=== PATIENT | female | born 1970 ===

== ENCOUNTER 2017-12-18 13:42 | Emergency (ER) | payer SELFPAY ==
[2017-12-18 13:42] VITALS: BMI 26.4
[2017-12-18 13:55] VITALS: RESP 16; TEMP 98.4
[2017-12-18 15:03] VITALS: BP 132/82; PULSE 76; O2SAT 99
--- NOTE | 2017-12-18 15:12 | ED PDOC ---
Upper Extremity Pain/Injury Time Seen by Provider: 12/18/17 14:03 Chief Complaint (Nursing): Finger,Hand,&Wrist Chief Complaint (Provider): Finger,Hand,&Wrist History Per: Patient History/Exam Limitations: no limitations Onset/Duration Of Symptoms: Other (x2 months) Current Symptoms Are (Timing): Still Present Additional Complaint(s): 47 year old female presents to the ED for evaluation of constant mild painful swelling to her left wrist and right fourth digit for the last two months. Otherwise, denies trauma, fever, numbness, and tingling. PMD: none provided Past Medical History Reviewed: Historical Data, Nursing Documentation, Vital Signs Vital Signs: Last Vital Signs Temp 98.4 F 12/18/17 13:52 Pulse 76 12/18/17 15:02 Resp 16 12/18/17 15:02 BP 132/82 12/18/17 15:02 Pulse Ox 99 12/18/17 15:02 - Medical History PMH: HTN, Hypercholesterolemia, Hyperlipidemia Denies: Chronic Kidney Disease - Surgical History Surgical History: - Family History Family History: States: Unknown Family Hx - Social History Current smoker - smoking cessation education provided: No Alcohol: None Drugs: Denies - Home Medications Home Medications: Ambulatory Orders Medication Instructions Recorded Cyclobenzaprine [Cyclobenzaprine 10 mg PO BID #10 tab 03/29/17 HCl] RX: Ibuprofen [Motrin Tab] 600 mg PO Q6 #20 tab 03/29/17 - Allergies Allergies/Adverse Reactions: Allergies Allergy/AdvReac Type Severity Reaction Status Date / Time No Known Allergies Allergy Verified 12/18/17 13:52 Review of Systems ROS Statement: Except As Marked, All Systems Reviewed And Found Negative Constitutional: Negative for: Fever Musculoskeletal: Positive for: Other (mild painful constant swelling to left wrist and right fourth digit) Neurological: Negative for: Numbness (or tingling) Physical Exam - Reviewed Nursing Documentation Reviewed: Yes Vital Signs Reviewed: Yes - Physical Exam Appears: Positive for: No Acute Distress Head Exam: Positive for: ATRAUMATIC, NORMOCEPHALIC Skin: Positive for: Normal Color. Negative for: Rash Pulses-Radial (L): 2+ Pulses-Radial (R): 2+ Extremity: Positive for: Normal ROM (actively of affected joints), Capillary Refill (less than 2 seconds), Other (Non-erythematous, non-fluctuant non-tender mobile mass on dorsum of left wrist and on the lateral surface of the right fourth pip) - ECG O2 Sat by Pulse Oximetry: 99 (RA) Pulse Ox Interpretation: Normal Medical Decision Making Medical Decision Making: Time: 150 Initial Impression: ganglion cyst --Pt informed that in order to completely remove cyst, she will need to follow up with a hand surgeon. Pt to be d/c with information for [facility] and Dr. Gunter, hand surgeon. Scribe Attestation: Documented by Nicki Elizabeth, acting as a scribe for Parish Chapa PA-C. Provider Scribe Attestation: All medical record entries made by the Scribe were at my direction and personally dictated by me. I have reviewed the chart and agree that the record accurately reflects my personal performance of the history, physical exam, medical decision making, and the department course for this patient. I have also personally directed, reviewed, and agree with the discharge instructions and disposition. Disposition - Clinical Impression Clinical Impression: Ganglion cyst - Patient ED Disposition Is Patient to be Admitted: No - Disposition Referrals: [facility] [Outside] formerly [facility] [Outside] Chilo Gunter MD [Staff Provider] - Disposition: Routine/Home Disposition Time: 14:29 Condition: STABLE Additional Instructions: JODI LANCASTER, thank you for letting us take care of you today. Your provider was Yuniel Mcfadden MD and you were treated for SKIN IRRITATION. The emergency medical care you received today was directed at your acute symptoms. If you were prescribed any medication, please fill it and take as directed. It may take several days for your symptoms to resolve. Return to the Emergency Department if your symptoms worsen, do not improve, or if you have any other problems. Please contact your doctor or call one of the physicians/clinics you have been referred to that are listed on the Patient Visit Information form that is included in your discharge packet. Bring any paperwork you were given at discharge with you along with any medications you are taking to your follow up visit. Our treatment cannot replace ongoing medical care by a primary care provider outside of the emergency department. Thank you for allowing the [facility] team to be part of your care today. If you had an X-Ray or CT scan: A Radiologist will review the ED reading if any change in treatment is needed we will contact you. If you had a blood, urine, or wound culture: It will take several days for the results, if any change in treatment is needed we will contact you. If you had an STI test: It will take 48 hours for the results. Please call after 1 week if you have not heard back. Instructions: Ganglion Cyst (DC) Forms: [employer] ([place]), [facility] School/Work Excuse Print Language: SINHALA
== END 2017-12-18 15:02 | disposition home or self-care (01) ==
LOC: H.ER 13:42
DX: M67.432 Ganglion, left wrist (principal)